=== PATIENT | male | born 1985 | race African-American/Black ===

== ENCOUNTER 2017-01-03 13:36 | Emergency (ER) | payer OTHER ==
[~2017-01-03] VITALS: Ht 172.7 cm; Wt 77.1 kg
[2017-01-03 15:43] LABS: BASO % 0.2 % (0.0-1.0); EOS # 0.3 K/mm3 (0.0-0.50); EOS % 3.4 % (0.0-3.0); LARGE UNSTAINED CELL # 0.2 K/mm3 (0.0-0.4); LARGE UNSTAINED CELL % 2.4 % (0.0-4.0); LYMPH # 2.9 K/mm3 (1.5-4.5); LYMPH % 35.1 % (24.0-44.0); MEAN CORPUSCULAR HEMOGLOBIN 31.9 pg (27.0-33.0); MEAN CORPUSCULAR HGB CONC 34.4 g/dl (32.0-36.5); MEAN CORPUSCULAR VOLUME 92.7 fl (80.0-96.0); MONO # 0.4 K/mm3 (0.0-0.8); MONO % 5.4 % (0.0-5.0); NEUTROPHILS # 4.2 K/mm3 (1.8-7.7); NEUTROPHILS % 53.6 % (36.0-66.0); PLATELET COUNT, AUTOMATED 188 k/mm3 (150-450); RED CELL DISTRIBUTION WIDTH 12.3 % (11.5-14.5); WHITE BLOOD COUNT 7.8 K/mm3 (4.0-10.0)
--- NOTE | 2017-01-03 15:58 | REP ---
CHEST, TWO VIEWS: There is no evidence of acute infiltrate. No pleural effusion is seen. The heart is normal in size. The mediastinal silhouette is unremarkable. The visualized osseous structures are intact. IMPRESSION: No acute pulmonary disease. Signed by Sudhir Maldonado MD 01/03/2017 03:59 P
[2017-01-03 16:07] LABS: ANION GAP 7 MEQ/L (8-16); BLOOD UREA NITROGEN 22 MG/DL (7-18); CALCIUM LEVEL 8.7 MG/DL (8.5-10.1); CARBON DIOXIDE LEVEL 30 MEQ/L (21-32); CHLORIDE LEVEL 102 MEQ/L (98-107); CREATININE FOR GFR 1.26 MG/DL (0.70-1.30); GLOMERULAR FILTRATION RATE > 60.0 (>60); GLUCOSE, FASTING 88 MG/DL (70-105); POTASSIUM SERUM 4.2 MEQ/L (3.5-5.1); SODIUM LEVEL 139 MEQ/L (136-145)
[2017-01-03 17:57] VITALS: BP 119/63
--- NOTE | 2017-01-05 12:10 | ECGEPIP ---
Stationary ECG Study [facility] - ED Test Date: 2017-01-03 Pat Name: FLORESITA LIM Department: Room: - Gender: M Singing Teacher: tila : 1985 Requested By: Edison Stiles Order Number: [id number] Reading MD: Clarisse Telles Measurements Intervals [place] Rate: 55 P: 31 MN: 208 QRS: 54 QRSD: 93 T: 43 QT: 388 QTc: 374 Interpretive Statements SINUS BRADYCARDIA MODERATE VOLTAGE CRITERIA FOR LVH, CONSIDER NORMAL VARIANT ST ELEVATION ?EARLY REPOLARIZATION VS ISCHEMIA, CLINICAL CORRELATION NO PRIOR FOR COMPARISON Electronically Signed On 01-05-2017 12:10:25 EST by Clarisse Telles
== END 2017-01-03 17:59 | disposition home or self-care (01) ==
LOC: EDBD 13:36 → M ED 14:25
DX: R07.9 Chest pain, unspecified (principal)